=== PATIENT | female | born 1970 | race Caucasian/White ===

== ENCOUNTER 2020-03-20 17:33 | Emergency (ER) | payer OTHER, SELFPAY ==
--- NOTE | ~2020-03-20 | CT_ITS ---
EXAMINATION: CT abdomen pelvis w con EXAM DATE: 03/20/2020 18:41 INDICATION: Right lower quadrant pain. TECHNIQUE: Spiral CT of the abdomen and pelvis was performed following intravenous injection of 100 m L Omnipaque 350. Axial, coronal and sagittal images were reviewed. The dose-length product (DLP) fo r this examination was 1593.11 mGy-cm. The exposure was tailored according to patient size (auto mA exposure control), and iterative reconstruction (ASIR) was used as additional dose reduction techniqu e. There is no prior study for comparison. FINDINGS: The liver, spleen, adrenal glands and pancreas are unremarkable. There are cholecystectomy clips. Portal and splenic veins are patent. Kidneys enhance symmetrically. There is no hydronephr osis. There is right adnexal cystic lesion measuring 6 cm, without evidence of focal wall thickenin g. This is most likely a hemorrhagic cyst. Differential diagnosis includes endometrioma, cystic ovari an neoplasm (more likely benign). The bladder is collapsed at time of imaging limiting evaluation. There is no retroperitoneal or pelvic lymphadenopathy. The appendix is normal. The stomach and small bowel are unremarkable. There is expected amount of c olonic stool. No free intraperitoneal gas. The heart is normal in size. There are no pericardial or pleural effusions. The lung bases are unremarkable. The bones are unremarkable. IMPRESSION: 1. Right ovarian 6 cm cystic lesion, could be hemorrhagic cyst but differential diagnosis does inclu de other histology such as endometrioma, cystic ovarian neoplasm. Consider a 6 week follow-up pelvic sonogram. 2. Normal appendix. Reviewed, dictated and finalized at location A. IMPRESSION: 1. Right ovarian 6 cm cystic lesion, could be hemorrhagic cyst but differentia l diagnosis does include other histology such as endometrioma, cystic ovarian n eoplasm. Consider a 6 week follow-up pelvic sonogram. 2. Normal appendix.
[2020-03-20 17:36] VITALS: BP 120/96; PULSE 63; RESP 18; TEMP 35.8; O2SAT 97
--- NOTE | 2020-03-20 17:55 | ED.ABDPAIN ---
HPI - Abdominal Pain General Chief Complaint: Abdominal Pain Stated Complaint: abd pain Time Seen by Provider: 03/20/20 17:55 Source: patient and family Mode of arrival: ambulatory Limitations: no limitations History of Present Illness HPI narrative: 49 years old white female, morbidly obese, presents with sudden right lower quadrant pain, sharp, pressure started 3 hours prior to arrival to the emergency room associated with nausea and vomiting. Patient denies any fever, chills, diarrhea, shortness of breath, chest pain or back pain. History of cholecystectomy. MD elicited complaint: abdominal pain Related Data Allergies Allergy/AdvReac Type Severity Reaction Status Date / Time No Known Allergies Allergy Verified 03/20/20 18:28 Review of Systems Review of Systems: Narrative: CONSTITUTIONAL: Denies fever, chills, or sweats. EYES: Denies visual changes, redness, or discharge. ENT: Denies rhinorrhea, congestion, sore throat, or otalgia. CARDIOVASCULAR: Denies chest pain, palpitations, or edema. RESPIRATORY: Denies cough or dyspnea. GASTROINTESTINAL: Denies abdominal pain, nausea, vomiting, or diarrhea. GENITOURINARY: Denies dysuria or hematuria. SKIN: Denies rash or itching. MUSCULOSKELETAL: Denies back pain, joint pain, or myalgia. NEUROLOGIC: Denies headache, numbness, or weakness. PSYCHIATRIC: Denies anxiety or depression. PMFSH Family History Family History Father Family history of elevated blood lipids Cerebrovascular accident Family history of diabetes mellitus in first degree relative Mother Family history of diabetes mellitus in first degree relative Social History Social History Smoking status: Never smoker Second hand tobacco smoke exposure: No Alcohol intake: current Gender identity (if verbalized by the patient): Female Exam Narrative: Exam Narrative: General appearance: Well-developed, well-nourished Skin: Normal color Head: Normocephalic, nontraumatic Eyes: Clear conjunctiva ENT: Oropharynx normal, ears normal, nose normal Neck: Supple, nontender Chest and respiratory: Airway patent, no respiratory distress, no accessory muscle use Heart: Regular rate/rhythm Abdomen: Soft, moderate tenderness right lower quadrant, no guarding or rebound, no organomegaly, quiet bowel sounds Vascular: Normal peripheral pulses, normal capillary refill. Musculoskeletal: Normal range of motion, nontender back Neurologic: Alert and oriented ?3, REIMBURSEMENT LIAISON is normal as tested, no gross motor deficit Course Course Emergency Course: Improving Vital Signs Vital signs: Vital Signs Temperature 35.8 C L 03/20/20 17:36 Pulse Rate 63 03/20/20 17:36 Respiratory Rate 18 03/20/20 17:36 Blood Pressure 120/96 H 03/20/20 17:36 Pulse Oximetry 97 03/20/20 17:36 Temperature 36.8 C 03/20/20 19:00 Pulse Rate 71 03/20/20 19:00 Respiratory Rate 19 03/20/20 19:00 Blood Pressure 153/87 H 03/20/20 19:00 Pulse Oximetry 100 03/20/20 19:00 MDM - Abdominal Pain MDM Narrative Medical decision making narrative: Right lower quadrant pain Cystitis, ovarian cyst, urinary tract infection, kidney stone, constipation. Labs, IV fluids, CT abdomen pelvis with IV contrast ordered. Further plan to follow , CT abdomen pelvis with IV contrast showed 6 cm cystic lesion at the right ovary which could be hemorrhagic, neoplasm. Requesting getting pelvic ultrasound 6 weeks later. I plan to discharge patient on anti-inflammatory medicine, pain medication, nausea medicine and to follow-up with [facility] for further evaluation. Lab Data Result jaquan
[2020-03-20 18:14] LABS: Alanine Aminotransferase 25 U/L (4-35); Albumin Level 4.2 g/dL (3.5-5.1); Alkaline Phosphatase 75 U/L (38-126); Anion Gap 10 mmol/L (8-16); Aspartate Amino Transferase 32 U/L (14-36); Bilirubin,Total 0.5 mg/dL (0.2-1.3); Blood Urea Nitrogen 10 mg/dL (7-17); Calcium 8.7 mg/dL (8.4-10.2); Carbon Dioxide 22 mmol/L (22-30); Chloride 104 mmol/L (98-107); Estimated CRCL calculation 92 ml/min; Estimated Glomerular Filt Rate > 60; Glucose 123 mg/dL (65-105); Lipase 56 U/L (23-300); Potassium 4.1 mmol/L (3.4-5.0); Sodium 136 mmol/L (137-145)
[2020-03-20 18:27] LABS: Basophils Absolute Auto 0.1 K/mm3 (0.0-0.1); Basophils Percent Auto 0.4 % (0.2-1.2); Eosinophils Absolute Auto 0.1 K/mm3 (0-0.3); Eosinophils Percent Auto 0.7 % (0-4.4); Hematocrit 40.1 % (37.0-47.0); Hemoglobin 13.4 g/dL (12.0-15.0); Immature Granulocyte Absolute 0.07 K/mm3 (0.00-0.031); Immature Granulocyte Percent A 0.6 % (0-0.5); Lymphocytes Absolute Auto 1.72 K/mm3 (0.9-3.2); Lymphocytes Percent Auto 14.3 % (18.3-44.2); Mean Corpuscular HGB Conc 33.4 g/dl (32-36); Mean Corpuscular Hemoglobin 29.3 pg (26-34); Mean Corpuscular Volume 87.7 fl (80-100); Mean Platelet Volume 9.7 fl (7.4-10.4); Monocytes Absolute Auto 0.5 K/mm3 (0.1-0.6); Monocytes Percent Auto 4.4 % (2.6-8.5); Neutrophils Absolute Auto 9.6 K/mm3 (1.3-6.7); Neutrophils Percent Auto 79.6 % (45.5-73.1); Platelet Count Result 250 k/mm3 (150-375); Red Blood Count 4.57 M/mm3 (4.2-5.4); Red Cell Distribution Width 14.3 % (11.5-14.5); White Blood Count 12.1 K/mm3 (4.5-10.0)
[2020-03-20 18:29] LABS: Add Urine Microscopic? YES; Appearance Urine Clear (Clear); Bacteria Urine Trace /hpf; Bilirubin Urine Negative (Negative); Blood Urine 1+ (Negative); Color Urine Yellow (Yellow); Glucose Urine UA Negative (Negative); Ketones Urine Trace mg/dL (Negative); Leukocyte Esterase Ur Negative LEU/UL (Negative); Mucus Urine Heavy /lpf; Nitrate Urine Negative (Negative); Protein Urine 1+ mg/dL (Negative); Specific Grav Ur 1.027 (1.001-1.035); Squamous Epithelial Cell Urine Few /hpf (Few); WBC Urine 0-3 /hpf
[2020-03-20] MEDS: SODIUM CHLORIDE 0.9% IV 1,000 ML 999 ML IV CONT (18:29)
[2020-03-20] MEDS: ONDANSETRON INJ 4 MG/2 ML VIAL IV PUSH (18:29)
[2020-03-20] MEDS: MORPHINE SULFATE 4 MG/ML INJ IV PUSH (18:51)
[2020-03-20 19:00] VITALS: BP 153/87; PULSE 71; RESP 19; TEMP 36.8; O2SAT 100
[2020-03-20] MEDS: KETOROLAC 30 MG/ML VIAL (*BKC) IV PUSH (19:26)
[2020-03-20] MEDS: diphenhydrAMINE HCl INJ 50 MG/ML VIAL 25 MG IV PUSH (19:26)
[2020-03-20] MEDS: METOCLOPRAMIDE HCL INJ 10 MG/2 ML VIAL IV PUSH (19:27)
--- NOTE | 2020-03-20 19:27 | PC.NURSE ---
Assumed care of pt at this time. Report from RODRICK Wiseman
[2020-03-20 20:20] VITALS: BP 156/94; PULSE 55; RESP 17; O2SAT 99
== END 2020-03-20 20:20 | disposition home or self-care (01) ==
PROVIDERS: Emergency Provider Emergency Medicine; PCP Internal Medicine
DX: N83.201 Unspecified ovarian cyst, right side (principal)
CPT/HCPCS: 36415; 74177; 80053; 81001; 81025; 83690; 85025; 96361; 96374; 96375; 99284; J1200; J1885; J2270; J2405; J2765; J7030; Q9967

== ENCOUNTER 2020-05-07 10:49 | Outpatient (CLI) | payer OTHER, SELFPAY ==
--- NOTE | ~2020-05-07 | US_ITS ---
EXAMINATION: US pelvic complete w TV DATE: 05/07/2020 12:10 INDICATION: Follow-up ovarian cyst TECHNIQUE: Multiple transabdominal and endovaginal sonographic images of the pelvis were obtained. COMPARISON: CT dated 03/20/2020 FINDINGS: The uterus measures 7.7 x 4.4 x 4.3 cm. The endometrial complex measures 12 mm in thickness. A few a nechoic nabothian cysts at the cervix. The right ovary measures 2.3 x 1.9 x 1.5 cm. Vascular flow rachael ntified in the right ovary on color Doppler. The previously seen right ovarian cyst is no longer visu alized and has likely resolved. The left ovary is not visualized. Small amount of likely physiologic free fluid in the cul-de-sac. IMPRESSION: 1. Normal right ovary with resolution of prior right ovarian cyst. 2. Small amount of likely physiologic free fluid in the cul-de-sac. Reviewed, dictated and finalized at location B.
== END 2020-05-07 10:50 | disposition home or self-care (01) ==
PROVIDERS: PCP Internal Medicine; Visit Provider Obstetrics & Gynecology
DX: N83.209 Unspecified ovarian cyst, unspecified side (principal)
CPT/HCPCS: 76830; 76856